=== PATIENT | female | born 1960 ===

== ENCOUNTER 2016-08-18 07:22 | Inpatient (IN) | payer MEDICAID ==
[2016-08-18] MEDS ORDERED: Sodium Chloride 0.9% 1,000 ML IV STA (07:35)
--- NOTE | 2016-08-18 07:38 | ED PDOC ---
HPI: Back Time Seen by Provider: 08/18/16 07:28 Chief Complaint (Nursing): Back Pain History Per: Patient Onset/Duration Of Symptoms: Days (2) Current Symptoms Are (Timing): Still Present Quality Of Discomfort: Aching Severity: Moderate Pain Scale Rating Of: 3 Previous Symptoms: Back Pain Associated Symptoms: None Exacerbating Factor(s): Nothing Additional Complaint(s): Fever assoc with body aches since yesterday. Denies cough abd pain NVD or dysuria. Has c/o sore throat but no difficulty swallowing Past Medical History Vital Signs: Last Vital Signs Temp 103.2 F H 08/18/16 07:26 Pulse 117 H 08/18/16 07:26 Resp 20 08/18/16 07:26 BP 130/74 08/18/16 07:26 Pulse Ox 97 08/18/16 07:26 - Medical History PMH: Diabetes, HTN - Family History Family History: States: Unknown Family Hx - Home Medications Home Medications: Ambulatory Orders Medication Instructions Recorded Losartan/Hydrochlorothiazide 1 tab SC DAILY 08/18/16 [Losartan-Hctz 100-12.5 mg Tab] - Allergies Allergies/Adverse Reactions: Allergies Allergy/AdvReac Type Severity Reaction Status Date / Time No Known Allergies Allergy Verified 08/18/16 07:38 Review of Systems ROS Statement: Except As Marked, All Systems Reviewed And Found Negative Constitutional: Positive for: Fever, Malaise ENT: Positive for: Throat Pain Respiratory: Negative for: Cough Gastrointestinal: Negative for: Vomiting, Diarrhea Physical Exam - Reviewed Nursing Documentation Reviewed: Yes Vital Signs Reviewed: Yes - Physical Exam Appears: Positive for: Non-toxic, No Acute Distress Head Exam: Positive for: ATRAUMATIC, NORMAL INSPECTION, NORMOCEPHALIC Skin: Positive for: Normal Color, Warm, DRY Eye Exam: Positive for: EOMI, Normal appearance, PERRL ENT: Positive for: Normal ENT Inspection Neck: Positive for: Normal, Painless ROM Cardiovascular/Chest: Positive for: Regular Rate, Rhythm Respiratory: Positive for: CNT, Normal Breath Sounds Gastrointestinal/Abdominal: Positive for: Normal Exam, Bowel Sounds, Soft Back: Positive for: Normal Inspection Extremity: Positive for: Normal ROM Neurologic/Psych: Positive for: Alert, Oriented - Laboratory Results Result Diagrams: 08/18/16 07:50 08/18/16 07:50 - ECG O2 Sat by Pulse Oximetry: 97 Disposition - Clinical Impression Clinical Impression: UTI (urinary tract infection), Sepsis - Patient ED Disposition Is Patient to be Admitted: Yes - Disposition Disposition Time: 10:16 Condition: FAIR - Pt Status Changed To: Hospital Disposition Of: Inpatient - Admit Certification Admit to Inpatient:: After my assessment, the patient will require hospitalization for at least two midnights. This is because of the severity of symptoms shown, intensity of services needed, and/or the medical risk in this patient being treated as an outpatient. - POA Present On Arrival: None
[2016-08-18 08:26] LABS: ALB/GLOB RATIO 1.2 (1.0-2.1); ALKALINE PHOSPHATASE 61 U/L (38-126); ALT/SGPT 45 U/L (9-52); AST/SGOT 33 U/L (14-36); BLOOD UREA NITROGEN 13 mg/dl (7-17); CALCIUM 8.5 mg/dL (8.4-10.2); CARBON DIOXIDE 23 mmol/L (22-30); CHLORIDE 97 mmol/L (98-107); GFR AFRICAN-AMERICAN > 60; GLUCOSE,RANDOM 279 mg/dL (65-105); POTASSIUM 3.8 MMOL/L (3.6-5.0); SODIUM 132 mmol/l (132-148); TOTAL PROTEIN 7.2 G/DL (6.3-8.2)
[2016-08-18 08:33] LABS: BASO % 0.1 % (0.0-2.0); LYMPH # 0.6 K/uL (1.0-4.3); LYMPH % 7.7 % (20.0-40.0); MEAN CORPUSCULAR HEMOGLOBIN 27.6 pg (27.0-31.0); MEAN CORPUSCULAR HGB CONC 33.6 g/dL (33.0-37.0); MEAN PLATELET VOLUME 9.4 fl (7.2-11.7); MONO # 0.2 K/uL (0.0-0.8); MONO % 2.9 % (0.0-10.0); NEUT # 7.3 K/uL (1.8-7.0); NEUT % 89.3 % (50.0-75.0); PLATELET COUNT 151 K/uL (130-400); WHITE BLOOD COUNT 8.2 K/uL (4.8-10.8)
[2016-08-18] MEDS ORDERED: cefTRIAXone (Rocephin) 1 gm Inj ONE (09:26)
[2016-08-18 10:11] LABS: VENOUS BLOOD GAS BASE EXCESS 2.5 mmol/L (0.0-2.0); VENOUS BLOOD GAS PCO2 37 mmHg (40-60); VENOUS BLOOD PH 7.46 (7.32-7.43)
[2016-08-18 12:39] LABS: EOSINOPHIL 2 % (0-7); NEUTROPHIL 81 % (42-75); TOTAL CELLS COUNTED 100
[2016-08-18] MEDS: Insulin Regular 100 units/ml SC SCH ×2 (16:29→22:00)
[2016-08-18] MEDS: Insulin Lispro (humaLOG) 100 Units/ml Inj SC SCH (16:30)
[2016-08-18] MEDS: Insulin Detemir 100 Units/ml Inj SC SCH (21:59)
[2016-08-19 06:11] LABS: HEMATOCRIT 35.8 % (34.0-47.0); MEAN CELL VOLUME 82.2 fl (81.0-99.0); MEAN CORPUSCULAR HEMOGLOBIN 27.2 pg (27.0-31.0); MEAN CORPUSCULAR HGB CONC 33.1 g/dL (33.0-37.0); RED CELL DISTRIBUTION WIDTH 14.2 % (11.5-14.5); WHITE BLOOD COUNT 5.7 K/uL (4.8-10.8)
[2016-08-19 06:42] LABS: ALB/GLOB RATIO 1.1 (1.0-2.1); ALKALINE PHOSPHATASE 51 U/L (38-126); ALT/SGPT 46 U/L (9-52); AST/SGOT 57 U/L (14-36); BILIRUBIN,TOTAL 0.6 mg/dl (0.2-1.3); BLOOD UREA NITROGEN 9 mg/dl (7-17); CALCIUM 8.1 mg/dL (8.4-10.2); CARBON DIOXIDE 27 mmol/L (22-30); CHLORIDE 100 mmol/L (98-107); CHOLESTEROL 108 mg/dL (0-199); GFR AFRICAN-AMERICAN > 60; GLUCOSE,RANDOM 139 mg/dL (65-105); POTASSIUM 3.5 MMOL/L (3.6-5.0); SODIUM 137 mmol/l (132-148); TOTAL PROTEIN 6.5 G/DL (6.3-8.2)
[2016-08-19 07:17] LABS: THYROID STIMULATING HORMONE 1.11 mIU/ML (0.46-4.68)
[2016-08-19] MEDS: Insulin Lispro (humaLOG) 100 Units/ml Inj SC SCH ×2 (08:50→16:48)
[2016-08-19] MEDS: Insulin Regular 100 units/ml SC SCH ×4 (08:51→21:39)
[2016-08-19] MEDS: cefTRIAXone 2 GM in Sodium Chloride 0.9% 100 ML IVPB SCH (08:52)
[2016-08-19] MEDS: HCTZ/Losartan 12.5/50 Tab PO SCH ×3 (08:52→09:06)
[2016-08-19 12:09] LABS: RBC URINE 3 /hpf (0-3); URINE BACTERIA RARE (<OCC); URINE BILIRUBIN NEGATIVE (NEGATIVE); URINE BLOOD SMALL (NEGATIVE); URINE COLOR YELLOW (YELLOW); URINE GLUCOSE (UA) >=500 mg/dL (Normal); URINE KETONE TRACE mg/dL (NEGATIVE); URINE LEUKOCYTE ESTERASE MOD Leu/uL (Negative); URINE PROTEIN NEGATIVE (NEGATIVE); URINE UROBILINOGEN 0.2-1.0 mg/dL (0.2-1.0); WBC URINE 12 /hpf (0-5)
--- NOTE | 2016-08-19 13:29 | RAD ---
HISTORY: fever COMPARISON: None available. TECHNIQUE: Chest PA and lateral FINDINGS: Examination limited by habitus. LUNGS: No focal consolidation. Please note that chest x-ray has limited sensitivity for the detection of pulmonary masses. PLEURA: No significant pleural effusion identified. No definite pneumothorax . CARDIOVASCULAR: Heart size appears within normal limits. Atherosclerotic calcifications of the aortic knob. OSSEOUS STRUCTURES: Degenerative changes of the spine. VISUALIZED UPPER ABDOMEN: Unremarkable. OTHER FINDINGS: None. IMPRESSION: No focal consolidation, significant pleural effusion, or definite pneumothorax identified.
--- NOTE | 2016-08-19 16:51 | CARD ---
APPROVED REPORT EKG Measurement Heart [id number] <Conclusion> Normal sinus rhythm Cannot rule out Anterior infarct, age undetermined-not diagnostic Abnormal ECG
--- NOTE | 2016-08-19 17:56 | HP ---
CHIEF COMPLAINT: Back pain and burning urination. HISTORY OF PRESENT ILLNESS: This is a 56-year-old female, known case of hypertension, diabetes, who was having abdominal pain associated with high fever, chills, and burning abdominal pain, so the leidy ent was brought to Emergency Room and was admitted for further management. REVIEW OF SYSTEMS: Positive for fever, chills, malaise, burning urination, and back pain. Review of system otherwise is negative for headache, dizziness, syncope, loss of consciousness, chest pain, sh ortness of breath, nausea, vomiting, diarrhea, constipation, any new joint or extremity pain. Review of systems of all other organ is unremarkable. PAST MEDICAL HISTORY: Significant for hypertension, diabetes. PAST SURGICAL HISTORY: Unremarkable. PERSONAL HISTORY: The patient is currently a nonsmoker, nondrinker, no substance abuse. MEDICATIONS: The patient is on multiple medications, which is as per reconciliation sheet, which was reviewed in order. ALLERGIES: The patient is not allergic to any medications. PHYSICAL EXAMINATION: GENERAL: Well-built, well-nourished 56-year-old female in no acute distress. VITAL SIGNS: Temperature 99.1, pulse 77, respirations 20, blood pressure 113/64. HEENT: Pupils reacting to light. No JVD, no thyromegaly, no lymphadenopathy, no nystagmus. Normoce phalic, atraumatic skull. HEART: S1, S2 normal, regular. No significant murmur, gallop, or rub is heard. LUNGS: Shows good bilateral air entry. No rales or rhonchi. ABDOMEN: Soft, nontender, no organomegaly, no fluid. Bowel sounds are plus. EXTREMITIES: No edema, no calf swelling, no tenderness, no acute ischemia. CENTRAL NERVOUS SYSTEM: Essentially unchanged. DIAGNOSTIC DATA: Available diagnostic data reviewed. WBC 5.7, hemoglobin 11.9, hematocrit 35.8, jose alejandro telet 234. Sodium 137, potassium 3.5, chloride 100, bicarb 27, BUN 9, creatinine 0.6. Accu-Cheks ar e 275, 383. SMA-12 otherwise is unremarkable. Urinalysis is unremarkable. ADMITTING IMPRESSION: Pyelonephritis, urinary tract infection, sepsis syndrome, type 2 diabetes with hyperglycemia, hypertension. PLAN: As ordered. Case and plan discussed with patient. Chun Pantoja MD cc: [id number] TT: 08/19/2016 17:55:51 dn
[2016-08-19] MEDS: Insulin Detemir 100 Units/ml Inj SC SCH (21:39)
[2016-08-19 23:56] VITALS: RESP 18
[2016-08-20 06:37] LABS: HEMATOCRIT 33.4 % (34.0-47.0); MEAN CELL VOLUME 81.7 fl (81.0-99.0); MEAN CORPUSCULAR HEMOGLOBIN 27.4 pg (27.0-31.0); MEAN CORPUSCULAR HGB CONC 33.5 g/dL (33.0-37.0); RED CELL DISTRIBUTION WIDTH 14.2 % (11.5-14.5); WHITE BLOOD COUNT 4.9 K/uL (4.8-10.8)
--- NOTE | 2016-08-20 06:40 | CP.PCM.DIS ---
Provider - Provider Date of Admission: 08/18/16 10:17 Attending physician: Chun Pantoja MD Time Spent in preparation of Discharge (in minutes): 45 Hospital Course - Lab Results Lab Results: Most Recent Lab Values WBC 5.7 K/uL (4.8-10.8) 08/19/16 06:00 RBC 4.36 Mil/uL (3.80-5.20) 08/19/16 06:00 Hgb 11.9 g/dL (12.0-16.0) L 08/19/16 06:00 Hct 35.8 % (34.0-47.0) 08/19/16 06:00 MCV 82.2 fl (81.0-99.0) 08/19/16 06:00 MCH 27.2 pg (27.0-31.0) 08/19/16 06:00 MCHC 33.1 g/dL (33.0-37.0) 08/19/16 06:00 RDW 14.2 % (11.5-14.5) 08/19/16 06:00 Plt Count 134 K/uL (130-400) 08/19/16 06:00 MPV 9.4 fl (7.2-11.7) 08/18/16 07:50 Neut % (Auto) 89.3 % (50.0-75.0) H 08/18/16 07:50 Lymph % (Auto) 7.7 % (20.0-40.0) L 08/18/16 07:50 [place] % (Auto) 2.9 % (0.0-10.0) 08/18/16 07:50 Eos % (Auto) 0.0 % (0.0-4.0) 08/18/16 07:50 Baso % (Auto) 0.1 % (0.0-2.0) 08/18/16 07:50 Neut # 7.3 K/uL (1.8-7.0) H 08/18/16 07:50 Lymph # 0.6 K/uL (1.0-4.3) L 08/18/16 07:50 [place] # 0.2 K/uL (0.0-0.8) 08/18/16 07:50 Eos # 0.0 K/uL (0.0-0.7) 08/18/16 07:50 Baso # 0.0 K/uL (0.0-0.2) 08/18/16 07:50 Neutrophils % (Manual) 81 % (42-75) H 08/18/16 07:50 Band Neutrophils % 6 % (0-2) H 08/18/16 07:50 Lymphocytes % (Manual) 9 % (20-50) L 08/18/16 07:50 Monocytes % (Manual) 2 % (0-10) 08/18/16 07:50 Eosinophils % (Manual) 2 % (0-7) 08/18/16 07:50 Platelet Estimate Normal (NORMAL) 08/18/16 07:50 RBC Morphology Normal (NORMAL) 08/18/16 07:50 pO2 44 mm/Hg (30-55) 08/18/16 10:05 VBG pH 7.46 (7.32-7.43) H 08/18/16 10:05 VBG pCO2 37 mmHg (40-60) L 08/18/16 10:05 VBG HCO3 26.5 mmol/L 08/18/16 10:05 VBG Total CO2 27.4 mmol/L (22-28) 08/18/16 10:05 VBG O2 Sat (Calc) 88.1 % (40-65) H 08/18/16 10:05 VBG Base Excess 2.5 mmol/L (0.0-2.0) H 08/18/16 10:05 VBG Potassium 3.2 mmol/L (3.6-5.2) L 08/18/16 10:05 Sodium 131.0 mmol/L (132-148) L 08/18/16 10:05 Chloride 101.0 mmol/L (98-107) 08/18/16 10:05 Glucose 232 mg/dL (65-105) H 08/18/16 10:05 Lactate 1.0 mmol/L (0.7-2.1) 08/18/16 10:05 FiO2 21.0 % 08/18/16 10:05 Sodium 137 mmol/l (132-148) 08/19/16 06:00 Potassium 3.5 MMOL/L (3.6-5.0) L 08/19/16 06:00 Chloride 100 mmol/L (98-107) 08/19/16 06:00 Carbon Dioxide 27 mmol/L (22-30) 08/19/16 06:00 Anion Gap 14 (10-20) 08/19/16 06:00 BUN 9 mg/dl (7-17) 08/19/16 06:00 Creatinine 0.6 mg/dL (0.7-1.2) L 08/19/16 06:00 Est GFR ( Amer) > 60 08/19/16 06:00 Est GFR (Non-Af Amer) > 60 08/19/16 06:00 POC Glucose (mg/dL) 208 mg/dL (65-110) H 08/20/16 05:17 Random Glucose 139 mg/dL (65-105) H 08/19/16 06:00 Hemoglobin A1c 10.8 % (4.2-6.5) H 08/19/16 06:00 Calcium 8.1 mg/dL (8.4-10.2) L 08/19/16 06:00 Total Bilirubin 0.6 mg/dl (0.2-1.3) 08/19/16 06:00 AST 57 U/L (14-36) H D 08/19/16 06:00 ALT 46 U/L (9-52) 08/19/16 06:00 Alkaline Phosphatase 51 U/L (38-126) 08/19/16 06:00 Total Protein 6.5 G/DL (6.3-8.2) 08/19/16 06:00 Albumin 3.3 g/dL (3.5-5.0) L 08/19/16 06:00 Globulin 3.1 gm/dL (2.2-3.9) 08/19/16 06:00 Albumin/Globulin Ratio 1.1 (1.0-2.1) 08/19/16 06:00 Triglycerides 78 mg/DL (0-149) 08/19/16 06:00 Cholesterol 108 mg/dL (0-199) 08/19/16 06:00 LDL Cholesterol Direct 51 mg/dL (0-129) 08/19/16 06:00 HDL Cholesterol 33 MG/DL (30-70) 08/19/16 06:00 TSH 3rd Generation 1.11 mIU/ML (0.46-4.68) 08/19/16 06:00 Venous Blood Potassium 3.2 mmol/L (3.6-5.2) L 08/18/16 10:05 Urine Color Yellow (YELLOW) 08/19/16 11:40 Urine Clarity Clear (Clear) 08/19/16 11:40 Urine pH 6.0 (5.0-8.0) 08/19/16 11:40 Ur Specific [place] 1.007 (1.003-1.030) 08/19/16 11:40 Urine Protein Negative mg/dL (NEGATIVE) 08/19/16 11:40 Urine Glucose (UA) >=500 mg/dL (Normal) 08/19/16 11:40 Urine Ketones Trace mg/dL (NEGATIVE) 08/19/16 11:40 Urine Blood Small (NEGATIVE) 08/19/16 11:40 Urine Nitrate Negative (NEGATIVE) 08/19/16 11:40 Urine Bilirubin Negative (NEGATIVE) 08/19/16 11:40 Urine Urobilinogen 0.2-1.0 mg/dL (0.2-1.0) 08/19/16 11:40 Ur Leukocyte Esterase Mod Krzysztof/uL (Negative) 08/19/16 11:40 Urine RBC (Auto) 3 /hpf (0-3) 08/19/16 11:40 Urine Microscopic WBC 12 /hpf (0-5) H 08/19/16 11:40 Ur Squamous Epith Cells < 1 /hpf (0-5) 08/19/16 11:40 Urine Bacteria Rare (<OCC) 08/19/16 11:40 Influenza Typ A,B (EIA) Negative for flu a/b (NEGATIVE) 08/19/16 14:20 Grp A Beta Strep Ag Negative (NEGATIVE) 08/18/16 07:50 - Hospital Course Hospital Course: Patient seen and examined at bedside with attending. 56F admitted for urosepsis, improved with volume resuscitation and a course of IV antibiotics. Urine culture sensitivities were confirmed, AVSS, and patient stable for discharge on course of antibiotics with close follow up with PMD. Discharge Exam - Head Exam Head Exam: ATRAUMATIC, NORMAL INSPECTION, NORMOCEPHALIC - Eye Exam Eye Exam: EOMI, Normal appearance - ENT Exam ENT Exam: Mucous Membranes Moist, Normal Exam - Neck Exam Neck exam: Full Rom, Normal Inspection - Respiratory Exam Respiratory Exam: Clear to PA & Lateral, NORMAL BREATHING PATTERN. absent: Rales, Wheezes - Cardiovascular Exam Cardiovascular Exam: REGULAR RHYTHM. absent: JVD - GI/Abdominal Exam GI & Abdominal Exam: Normal Bowel Sounds, Soft. absent: Tenderness - Back Exam Back exam: absent: CVA tenderness (L), CVA tenderness (R) - Neurological Exam Neurological exam: Alert, Oriented x3 - Psychiatric Exam Psychiatric exam: Normal Affect, Normal Mood - Skin Skin Exam: Normal Color, Warm Discharge Plan - Discharge Medications Prescriptions: Cephalexin [cephalexin] 500 mg PO TID #30 cap - Follow Up Plan Condition: FAIR Disposition: HOME/ ROUTINE Instructions: Sepsis (DC), Sepsis (GEN), Urinary Tract Infection in Women (DC) , Urinary Tract Infection in Men (DC), Dysuria (GEN) Additional Instructions: Complete entire course of antibiotics. Referrals: Chun Pantoja MD [Staff Provider] -
[2016-08-20] MEDS: Insulin Regular 100 units/ml SC SCH ×2 (06:42→12:24)
[2016-08-20 06:46] LABS: ALB/GLOB RATIO 1.1 (1.0-2.1); ALKALINE PHOSPHATASE 51 U/L (38-126); ALT/SGPT 57 U/L (9-52); AST/SGOT 54 U/L (14-36); BILIRUBIN,TOTAL 0.4 mg/dl (0.2-1.3); BLOOD UREA NITROGEN 12 mg/dl (7-17); CALCIUM 8.5 mg/dL (8.4-10.2); CARBON DIOXIDE 30 mmol/L (22-30); CHLORIDE 101 mmol/L (98-107); GFR AFRICAN-AMERICAN > 60; GLUCOSE,RANDOM 187 mg/dL (65-105); POTASSIUM 3.9 MMOL/L (3.6-5.0); SODIUM 139 mmol/l (132-148); TOTAL PROTEIN 6.4 G/DL (6.3-8.2)
[2016-08-20] MEDS: Insulin Lispro (humaLOG) 100 Units/ml Inj SC SCH (08:55)
[2016-08-20] MEDS: HCTZ/Losartan 12.5/50 Tab PO SCH (08:57)
[2016-08-20] MEDS: cefTRIAXone 2 GM in Sodium Chloride 0.9% 100 ML IVPB SCH (08:58)
--- NOTE | 2016-08-20 10:54 | PQF GENQUE ---
Dr. Pantoja, Further clarification of the Diagnosis of "Sepsis Syndrome" listed in the H and P: there is no ICD-10 code for this diagnosis ER note: C/O back pain ---Fever associated with body aches since yesterday Clinical Impression: UTI (urinary tract infection), Sepsis POA: none H and P; HTN, DM, who was having abdominal pain associated with high fever, chills, and burning abdominal pain Impression: Pyelonephritis, urinary tract infection, sepsis syndrome, type 2 diabetes with hyperglycemia, hypertension. temperature:103.2->100.2->100.1->102.9-.102.9->102.9 on 08/19 temp max: 100.4 pulse:117-.89->89 WBC: 8.2->5.7->4.9 left shift urine culture: positive for e-coli Blood Culture:no growth after 48 hours throat culture no beta strep group isolated This form is a permanent part of the medical record Clarification of your documentation is requested to better reflect the severity of illness and intensity of treatment of your patient. Indicators present [] Specify: [] [] Specify: [] [] Specify: [] [] Specify: [] Location in the medical record that reflects the above clinical findings: [] Treatment Provided: [] PHYSICIAN'S RESPONSE Based on your medical judgment of the clinical indicators outlined above please clarify the following: [] Practitioner response [] If unable to determine, please check the box, sign and date. Present On Admission (POA) Indicator: [] Present at the time of admission [] Not present at the time of admission [] Clinically Undetermined In responding to this query, please exercise your independent professional judgment. The fact that a question is asked does not imply that any particular answer is desired or expected. Thank you for your clarification on this documentation. If you have any questions please call. * Thank you, Chrissy Thomason RN BSN ext. #[phone] MTDD
[2016-08-20 12:03] VITALS: BP 112/70; PULSE 69; TEMP 97.8; O2SAT 98
== END 2016-08-20 14:00 | disposition home or self-care (01) | DRG 901 ==
LOC: H.ER 07:22 → EDBD 10:17 → H.ERHOLD 10:17 → H.TEL 11:55
PROVIDERS: ADMIT Internal Medicine; ATTEND Internal Medicine
DX: A41.9 Sepsis, unspecified organism (principal); E11.65 Type 2 diabetes mellitus with hyperglycemia; I10 Essential (primary) hypertension; N12 Tubulo-interstitial nephritis, not specified as acute or chronic